=== PATIENT | female | born 2000 | race Caucasian/White ===

== ENCOUNTER → 2021-07-11 11:30 | Outpatient (BNVA) | payer OTHER, SELFPAY | PROVIDERS: Visit Provider Advanced Practice Midwife ==

== ENCOUNTER 2021-07-15 12:53 | Outpatient (REF) | payer OTHER, SELFPAY ==
--- NOTE | ~2021-07-15 | US_ITS ---
EXAMINATION: OBSTETRICAL ULTRASOUND, FIRST TRIMESTER HISTORY: A 20-year-old at 15.4 weeks of gestation Uncertain dates LMP: Unknown COMPARISON: None TECHNIQUE: Real time transabdominal imaging with color and M-mode Doppler. FINDINGS: A single, live IUP CRL of 34.2 mm c/w 10.3wks is noted. Heart Rate: 161 beats per minute. Too early for NT evaluation. However the nuchal area appeared grossly normal. Both maternal ovaries are seen and appear normal. GESTATIONAL AGE: 1. GA from LMP: N/A 2. GA from AUA: 10.3 wks ESTIMATED DATE OF DELIVERY: 1. BERTA from LMP: N/A 2. BERTA from AUA: 02/07/2022 US/US OB <= 14 weeks fetus IMPRESSION: 1. A single live IUP 2. Size less than dates, CRL is distended 10.3 weeks. 3. Adjust her BERTA to 02/07/2022 Too early for NT. A 2 week follow-up has been scheduled. Thank you very much for this referral. This note was generated with a voice recognition program. Please excuse any errors which may have been overlooked during my review of this note. Sometimes these errors may affect the content or meaning of a given sentence.
== END 2021-07-15 12:54 | disposition home or self-care (01) ==
LOC: HO.US 12:53
PROVIDERS: Visit Provider Obstetrics & Gynecology
DX: Z34.92 Encounter for supervision of normal pregnancy, unspecified, second trimester (principal)
CPT/HCPCS: 76801

== ENCOUNTER → 2021-07-25 13:54 | Outpatient (BNVA) | payer OTHER, SELFPAY | PROVIDERS: Visit Provider Obstetrics & Gynecology | DX: O99.211 Obesity complicating pregnancy, first trimester (principal); Z3A.11 11 weeks gestation of pregnancy | CPT/HCPCS: 99212 ==

== ENCOUNTER 2021-07-29 14:15 | Outpatient (REF) | payer OTHER, SELFPAY ==
--- NOTE | ~2021-07-29 | US_ITS ---
EXAMINATION: OBSTETRICAL ULTRASOUND, FIRST TRIMESTER HISTORY: 20-year-old at 12.3 weeks of gestation NT screening COMPARISON: 07/15/2021 TECHNIQUE: Real time transabdominal imaging with color and M-mode Doppler. FINDINGS: A single, live IUP CRL of 57.8 mm c/w 12.3wks is noted. Heart Rate: 167 beats per minute. Normal yolk sac seen. NT was 1.85.mm. NB Present The embryo appears sonographically wnl for this GA. Both maternal ovaries are seen and appear normal. GESTATIONAL AGE: 1. Established GA: 12.3 wks 2. GA from AUA: 12.3 wks ESTIMATED DATE OF DELIVERY: 1. Established BERTA: 02/07/2022 2. BERTA from AUA: 02/07/2022 US/US OB 1T nuc measure IMPRESSION: 1. A single live IUP 2. Size equals dates 3. NT of 1.85 mm MFM Consultation: I reviewed the ultrasound findings along with significance of NT measurement. The NT of less than 3mm is generally reassuring. However, the sensitivity for T21 detection is only 60%. I reviewed the availability of serum aneuploidy screening which includes cell-free DNA and placental protein based tests. I discussed the sensitivity, false-positive rate, and other limitations associated with each test. I also reviewed the availability of invasive diagnostic tests that are associated small but definite risk of miscarriage. We also reviewed the differences between screening tests and diagnostic tests. After our discussion, she opted for the First trimester screening that is based on cell-free DNA or non-invasive testing (NIPT). The result will be faxed to your office in approximately 7 days. A follow up at 18 weeks for survey has been scheduled. Thank you very much for this referral. Total time 30 minutes. The time spent was devoted to counseling the patient about the disease and diagnosis, coordinating care including reviewing her records, pertinent lab data and studies, as well as discussing diagnostic evaluation and workup, plan therapeutic interventions and future disposition of care. This includes any additional research needed to obtain further information in formulating the plan of care of this patient. This note was generated with a voice recognition program. Please excuse any errors which may have been overlooked during my review of this note. Sometimes these errors may affect the content or meaning of a given sentence.
== END 2021-07-29 14:16 | disposition home or self-care (01) ==
LOC: HO.US 14:15
PROVIDERS: Visit Provider Obstetrics & Gynecology
DX: Z34.90 Encounter for supervision of normal pregnancy, unspecified, unspecified trimester (principal)
CPT/HCPCS: 76813

== ENCOUNTER 2021-08-23 14:07 | Outpatient (REF) | payer OTHER, SELFPAY ==
[2021-08-23 17:37] LABS: Hematocrit 39.4 % (37.0-47.0); Hemoglobin 12.9 g/dl (12.0-16.0); Mean Corpuscular HGB Conc 32.7 g/dl (31.0-35.0); Mean Corpuscular Hemoglobin 28.1 pg (27.0-33.0); Mean Corpuscular Volume 85.8 fL (80.0-98.0); Mean Platelet Volume 11.4 fL (9.4-12.3); Platelet Count 222 X10*3/uL (160-400); Red Blood Count 4.59 X10*6/uL (4.20-5.50); Red Cell Distribution Width 13.2 % (11.0-16.0)
[2021-08-23 17:58] LABS: Glucose 1 Hour PP 50gm Dose 113 mg/dL (60-140)
[2021-08-23 19:12] LABS: Amphetamine Screen Urine Not Detected (Not Detect); Barbiturates, Urine Not Detected (Not Detect); Benzodiazepines Screen Urine Not Detected (Not Detect); Cannabinoid Screen Urine Not Detected (Not Detect); Cocaine Screen Urine Not Detected (Not Detect); Fentanyl, urine Not Detected (Not Detect); Opiate Screen Urine Not Detected (Not Detect); Phencyclidine Screen Urine Not Detected (Not Detect)
[2021-08-24 08:33] LABS: Syphilis Screen Nonreactive (Nonreactive)
[2021-08-24 08:53] LABS: HIV AB/AG Nonreactive (Nonreactive); HIV Num 1 0.08 S/CO (0.00-0.99)
[2021-08-24 09:11] LABS: HBsAGNum1 0.16 S/CO (0.00-0.99); Hepatitis B Surface Antigen Negative (Negative); ~HepC Num1 0.58 S/CO (0.00-0.79); ~Hepatitis C Antibody Nonreactive (Nonreactive)
[2021-08-24 09:42] LABS: CT PCR NOT DETECTED (Not Detect.); NG PCR NOT DETECTED (Not Detect.)
[2021-08-24 18:57] LABS: Rubella IgG Antibody 0.98 Index
== END 2021-08-23 14:08 | disposition home or self-care (01) ==
LOC: HO.LAB 14:07
PROVIDERS: Absent Provider Obstetrics & Gynecology; Visit Provider Advanced Practice Midwife
DX: Z34.92 Encounter for supervision of normal pregnancy, unspecified, second trimester (principal); Z3A.16 16 weeks gestation of pregnancy; Z20.2 Contact with and (suspected) exposure to infections with a predominantly sexual mode of transmission
CPT/HCPCS: 80307; 81003; 85027; 86762; 86780; 86787; 86803; 86850; 86886; 86900; 86901; 87086; 87340; 87389; 87491; 87591; 88142; 99212

== ENCOUNTER 2021-09-09 12:52 | Outpatient (REF) | payer OTHER, SELFPAY ==
--- NOTE | ~2021-09-09 | US_ITS ---
EXAMINATION: US OBSTETRICAL CLINICAL INFORMATION: 20-year-old at 18.3 weeks of gestation High BMI Screening for anomaly COMPARISON: 07/29/2021 TECHNIQUE: Real-time transabdominal ultrasound was performed using C1-5 megahertz transducer. FINDINGS: A single, active, fetus is seen in vertex presentation. The placenta is posterior without previa, and the amniotic fluid volume is wnl. MEASUREMENTS: 1. Biparietal Diameter: 4.1 cm; 18.4 wks 2. Occipital Frontal Diameter: 5.4 cm 3. Head Circumference: 15.4 cm; 18.3 wks 4. Abdominal Circumference: 12.5 cm; 18.1 wks 5. Femur Length: 2.7 cm; 18.3 wks 6. Humerus Length: 2.6 cm; 18.2 wks 7. Tibia Length: 2.3 cm; 18.1 wks 8. Ulna Length: 2.5 cm; 19.0 wks 9. Lateral ventricle: 0.7 cm 10. Cerebellum: 1.84 cm; 19.1 wks 11. Cisterna Magna: 0.35 cm 12. Nuchal Fold: 3.53 mm 13. Heart Rate: 132 beats per minute Rt ovary: normal Lt ovary: normal Cervical length 4.3 cm on T/A. GESTATIONAL AGE: 1. Established GA: 18.3 wks 2. GA from [facility]: 18.3 wks ESTIMATED DATE OF DELIVERY: 1. Established BERTA: 02/07/2022 2. BERTA from [facility]: 02/07/2022 ANATOMY: The views of the aortic and ductal arches were suboptimal. The visualized anatomy includes but not limited to: 1. Cranium: Normal 2. Intracranial anatomy: cavum septum pellucidi, lateral ventricles, choroid plexus, cerebellum, posterior fossa, third and fourth ventricles. 3. face: orbits, lip/palate, profile, nasal bone 4. Heart: Limited views of the aortic and ductal arches due to maternal body habitus and position. four-chamber view of the heart, ventricular septum, foramen ovale, pulmonary vein, left and right outflow tracts, three-vessel view, 3 vessel trachea view, situs.. 5. Diaphragm: Normal 6. Abdominal wall: Normal 7. Cord Insertion: Normal 8. Spine: Cervical, thoracic, lumbar, sacral. 9. Stomach: Normal size and shape 10. Right Kidney: Normal 11. Left Kidney: Normal 12. 3 vessel cord: Normal 13. Upper extremity: Open hands, fifth digit. 14. Lower extremity: Tibia, fibula, bilateral feet. 15. Bladder: Normal 16. Genitalia: Male, patient aware US/US OB /maternal detail IMPRESSION: 1. Single, living, intrauterine with appropriate biometry. 2. Normal survey DISCUSSION: I reviewed today's ultrasound findings. We discussed the limitations of ultrasound in diagnosing aneuploidy and other congenital abnormalities. I reviewed the differences between screening test and diagnostic test. Amniocentesis was discussed and declined. She had normal NT evaluation but declined N IPT. She was informed that the baseline incidence of congenital abnormalities is approximately 3-5%. Not all these conditions are diagnosable in utero. RECOMMENDATIONS: 1. Follow-up in 3 weeks (scheduled). Thank you for allowing me to participate in her care. Total time 20 minutes. The time spent was devoted to counseling the patient about the disease and diagnosis, coordinating care including reviewing her records, pertinent lab data and studies, as well as discussing diagnostic evaluation and workup, plan therapeutic interventions and future disposition of care. This includes any additional research needed to obtain further information in formulating the plan of care of this patient. This note was generated with a voice recognition program. Please excuse any errors which may have been overlooked during my review of this note. Sometimes these errors may affect the content or meaning of a given sentence.
== END 2021-09-09 12:53 | disposition home or self-care (01) ==
LOC: HO.US 12:52
PROVIDERS: Visit Provider Advanced Practice Midwife
DX: O46.92 Antepartum hemorrhage, unspecified, second trimester (principal); O35.9XX0 Maternal care for (suspected) fetal abnormality and damage, unspecified, not applicable or unspecified; Z3A.18 18 weeks gestation of pregnancy
CPT/HCPCS: 76811

== ENCOUNTER → 2021-09-19 10:21 | Outpatient (BNVA) | payer OTHER, SELFPAY | PROVIDERS: Visit Provider Advanced Practice Midwife | DX: Z34.82 Encounter for supervision of other normal pregnancy, second trimester (principal); Z3A.19 19 weeks gestation of pregnancy | CPT/HCPCS: 99212 ==

== ENCOUNTER → 2021-10-17 12:55 | Outpatient (BNVA) | payer OTHER, SELFPAY | PROVIDERS: Visit Provider Advanced Practice Midwife | DX: Z34.82 Encounter for supervision of other normal pregnancy, second trimester (principal); Z3A.23 23 weeks gestation of pregnancy | CPT/HCPCS: 99212 ==

== ENCOUNTER 2021-10-21 10:53 | Outpatient (REF) | payer OTHER, SELFPAY ==
--- NOTE | ~2021-10-21 | US_ITS ---
EXAMINATION: OBSTETRICAL ULTRASOUND, Follow up HISTORY: 20-year-old at 24.3 weeks of gestation Follow-up anatomy COMPARISON: 09/09/2021 TECHNIQUE: Real time transabdominal imaging with color and M-mode Doppler. PRESENTATION: Vertex PLACENTA LOCATION: Posterior without previa AMNIOTIC FLUID: Normal MEASUREMENTS: 1. Biparietal Diameter: 5.9 cm; 24.2 wks 2. Head Circumference: 22.8 cm; 24.6 wks 3. Abdominal Circumference: 19.8 cm; 24.4 wks 4. Femur Length: 4.2 cm; 23.6 wks 5. Heart Rate: 155 beats per minute WEIGHT: Estimated weight is 677 grams (1 lbs 8 oz) -- 33 %. Normal views of lateral cerebral ventricle, profile, nose/lips, 4ch view, LVOT, RVOT, three-vessel view, 3 vessel trachea view, IVC and SVC, aortic and ductal arches, right and left hands, right and left lower extremities. GESTATIONAL AGE: 1. Established GA: 24.3 wks 2. GA from AUA: 24.3 wks ESTIMATED DATE OF DELIVERY: 1. Established BERTA: 02/07/2022 2. BERTA from AUA: 02/07/2022 US/US OB follow up IMPRESSION: 1. A single fetus with appropriate interval growth. 2. Previously limited views of the anatomy were seen as listed above. No abnormalities were noted in visualized anatomy. 3. This completes the survey. I reviewed the limitations of ultrasound in diagnosing aneuploidy and other congenital abnormalities. Amniocentesis was again reviewed and she declined. She was informed that the baseline instance of congenital abnormalities and defects in the general population is approximately 3-5%. Not all these conditions are diagnosable in utero. RECOMMENDATIONS: 1. f/u PRN Thank you very much for this referral. This note was generated with a voice recognition program. Please excuse any errors which may have been overlooked during my review of this note. Sometimes these errors may affect the content or meaning of a given sentence.
== END 2021-10-21 10:54 | disposition home or self-care (01) ==
LOC: HO.US 10:53
PROVIDERS: Absent Provider Obstetrics & Gynecology; Visit Provider Advanced Practice Midwife
DX: O35.9XX0 Maternal care for (suspected) fetal abnormality and damage, unspecified, not applicable or unspecified (principal); O23.40 Unspecified infection of urinary tract in pregnancy, unspecified trimester; N39.0 Urinary tract infection, site not specified
CPT/HCPCS: 76816; 87086; 87147

== ENCOUNTER 2021-11-10 15:37 | Outpatient (REF) | payer OTHER, SELFPAY ==
--- NOTE | 2021-11-10 16:02 | ECG_ITS ---
Test Reason : palpitations Blood Pressure : / mmHG Vent. Rate : 080 BPM Atrial Rate : 080 BPM P-R Int : 132 ms QRS Dur : 086 ms QT Int : 358 ms P-R-T Axes : 018 001 020 degrees QTc Int : 412 ms Normal sinus rhythm Normal ECG When compared with ECG of 04-NOV-2018 22:06, No significant change was found Referred By: Samantha Jackson Electronically Signed By:LEONEL LLANES
[2021-11-10 16:55] LABS: TSH reflex Free T4 (Prenatal) 3.49 uIU/mL (0.32-4.0)
[2021-11-10 17:55] LABS: Free T4 (Free Thyroxine) 0.62 ng/dL (0.71-1.85)
== END 2021-11-10 15:38 | disposition home or self-care (01) ==
LOC: HO.LAB 15:37
PROVIDERS: Visit Provider Obstetrics & Gynecology
DX: O26.899 Other specified pregnancy related conditions, unspecified trimester (principal); R00.2 Palpitations
CPT/HCPCS: 36415; 84439; 93005

== ENCOUNTER → 2021-11-11 10:18 | Outpatient (REF) | payer OTHER, SELFPAY ==
--- NOTE | 2021-11-11 10:25 | CA_ITS ---
Transthoracic Echocardiogram Patient (Last, First, Middle): Hari Abad Rose Gender: Female Date of : 2000 Age: 20 Procedure Date: 11/11/2021 Procedure Type: Transthoracic Echocardiogram Location: OP Height: 162.56 cm Weight: 110.68 kg BSA: 2.13 m2 Heart Rate: bpm BP: 114 / 70 mmHg [employer] Project Planner: EMILIA Referring MD: Raymundo Darling MD Symptoms: R00.2 - Palpitations Study Quality: Fair ECG Rhythm: Sinus Conclusions: - The left ventricular systolic function is normal. The calculated ejection fraction is 58% by biplane method. - No obvious valvular pathology seen on this study. Findings Left Ventricle Normal left ventricular cavity size. There is normal left ventricular wall thickness. The left ventricular systolic function is normal. The calculated ejection fraction is 58% by biplane method. There is no evidence of regional wall motion abnormalities. Diastolic function is normal for age. Right Ventricle Normal right ventricular cavity size and systolic function. Atria Both atria are normal in size. Aortic Valve There is a normal trileaflet aortic valve. There is no aortic valve stenosis. There is no aortic valve regurgitation. Mitral Valve The mitral valve appears normal. There is trace mitral valve regurgitation. There is no mitral valve stenosis. Pulmonic Valve The pulmonic valve is likely normal. Tricuspid Valve Normal tricuspid valve structure. There is trace tricuspid valve regurgitation. The pulmonary artery systolic pressure is normal. Great Vessels The aortic annulus, sinuses of valsalva, asc aorta, and aortic arch are normal in size. Venous The inferior vena cava is normal in size and collapses greater than 50% with inspiration. Pericardium/Pleural There is no evidence of pericardial effusion. Prior Study Comparison No significant change compared to prior study dated: 01/11/2017. Recommendations, Care & Conclusions No obvious valvular pathology seen on this study. Measurements 2D Linear Measurements IVSd: 0.98 0.6-0.9/0.6-1.0 cm LVIDd: 4.49 3.9-5.3/4.2-5.9 cm LVIDd Index: 2.11 2.4-3.2/2.2-3.1 cm/m2 LVIDs: 3.13 2.0-3.6 cm LVPWd: 0.84 0.7-1.1 cm Ao Root: 3.00 2.1-3.5 cm LA Diam: 3.70 2.7-3.8/3.0-4.0 cm LAIDs Index: 1.74 1.5-2.3 cm/m2 LV Mass: 166.90 67-162/88-224 g LV Mass Index: 78.36 43-95/49-115 g/m2 LVOT Diam: 2.10 3.0+(-)1.3 cm 2D Systolic Function EF 4C: 60.20 >55% EF 2C: 58.00 >55% EF BiP: 57.90 >55% Mitral Valve MV Pk E: 0.85 MV PK A: 0.59 MV Decel Time: 194.00 E/A: 1.40 E'Lateral: 12.10 E'Medial: 9.90 E/E' Med: 8.60 E/E' Lat: 7.00 PHT: 57.00 MVA PHT: 3.86 Decel [place]: 4.39 Aortic Valve AoV Pk J Carlos: 1.52 AoV Mn J Carlos: 1.08 AoV VTI: 0.28 AoV Pk Grad: 9.00 Aov Mn Grad: 5.00 BRIAN Cont.VTI: 2.79 LVOT LVOT Pk J Carlos: 1.19 LVOT Mn J Carlos: 0.82 LVOT VTI: 0.23 LVOT Pk Grad: 6.00 LVOT Mn Grad: 3.00 LVOT Diam: 2.10 LVOT Area: 3.46 Diastolic Function MV Pk E: 0.85 MV Pk A: 0.59 E/A: 1.40 E'Medial: 9.90 E/E' Med: 8.60 E' Laterial: 12.10 E/E' Lat: 7.00 Right Ventricle TAPSE (mm): 27.20 TVS' J Carlos: 13.80 Tricuspid Valve TR Pk J Carlos: 1.62 TR Pk Grad: 10.00 Great Vessels Aorta Ao Root-2D: 3.00 2.0-3.7 cm Ao Asc: 3.10 2.1-3.4 cm Ao Arch: 3.00 Updated in Other Vendor System with Status of Final Eric Diego MD electronically signed on 11/13/2021 1:27:48 PM with status of Final
== END ==
LOC: HO.CARD 10:18
PROVIDERS: Visit Provider Obstetrics & Gynecology
DX: O26.892 Other specified pregnancy related conditions, second trimester (principal); R00.2 Palpitations; Z3A.27 27 weeks gestation of pregnancy
CPT/HCPCS: 93306; 99212

== ENCOUNTER 2021-11-17 11:47 | Outpatient (REF) | payer OTHER, SELFPAY ==
[2021-11-17 13:58] LABS: Thyroid Stimulating Hormone 2.98 uIU/mL (0.32-4.0)
[2021-11-19 07:06] LABS: Thyroglobulin Antibodies 6 IU/mL (< or = 1); Thyroid Peroxidase Antibodies 169 IU/mL (<9)
== END 2021-11-17 11:48 | disposition home or self-care (01) ==
LOC: HO.LAB 11:47
PROVIDERS: Visit Provider Internal Medicine
DX: O99.280 Endocrine, nutritional and metabolic diseases complicating pregnancy, unspecified trimester (principal); E03.9 Hypothyroidism, unspecified
CPT/HCPCS: 36415; 84436; 84443; 86376; 86800

== ENCOUNTER 2021-11-23 11:46 | Outpatient (REF) | payer OTHER, SELFPAY ==
[2021-11-23 13:29] LABS: Glucose 1 Hour PP 50gm Dose 173 mg/dL (60-140)
== END 2021-11-23 11:47 | disposition home or self-care (01) ==
LOC: HO.LAB 11:46
PROVIDERS: Visit Provider Advanced Practice Midwife
DX: O36.8330 Maternal care for abnormalities of the fetal heart rate or rhythm, third trimester, not applicable or unspecified (principal); O99.283 Endocrine, nutritional and metabolic diseases complicating pregnancy, third trimester; O99.213 Obesity complicating pregnancy, third trimester; E66.9 Obesity, unspecified; Z3A.29 29 weeks gestation of pregnancy; Z98.891 History of uterine scar from previous surgery
CPT/HCPCS: 36415; 59025; 81003; 99212

== ENCOUNTER 2021-11-26 07:08 | Outpatient (REF) | payer OTHER, SELFPAY ==
[2021-11-26 08:26] LABS: Glucose Fasting 101 mg/dL (60-99)
[2021-11-26 08:51] LABS: Glucose 1 Hour 210 mg/dL
[2021-11-26 10:45] LABS: Glucose 2 Hour 117 mg/dL
[2021-11-26 11:34] LABS: Glucose 3 Hour 144 mg/dL
== END 2021-11-26 07:09 | disposition home or self-care (01) ==
LOC: HO.LAB 07:08
PROVIDERS: Visit Provider Advanced Practice Midwife
DX: O99.810 Abnormal glucose complicating pregnancy (principal)
CPT/HCPCS: 36415; 82951

== ENCOUNTER → 2021-12-01 15:39 | Outpatient (BNVA) | payer OTHER, SELFPAY | PROVIDERS: Visit Provider Advanced Practice Midwife ==

== ENCOUNTER → 2021-12-09 10:45 | Outpatient (BNVA) | payer OTHER, SELFPAY | PROVIDERS: Visit Provider Advanced Practice Midwife | DX: O24.410 Gestational diabetes mellitus in pregnancy, diet controlled (principal); Z3A.31 31 weeks gestation of pregnancy; Z98.891 History of uterine scar from previous surgery | CPT/HCPCS: 81003; 99212 ==

== ENCOUNTER 2021-12-30 10:37 | Outpatient (REF) | payer OTHER, SELFPAY ==
[2021-12-30 12:17] LABS: Thyroid Stimulating Hormone 2.06 uIU/mL (0.32-4.0)
[2021-12-30 12:46] LABS: T4 Thyroxine 8.1 ug/dL (4.5-12.0)
== END 2021-12-30 10:38 | disposition home or self-care (01) ==
LOC: HO.LAB 10:37
PROVIDERS: Visit Provider Internal Medicine
DX: O99.280 Endocrine, nutritional and metabolic diseases complicating pregnancy, unspecified trimester (principal); E03.9 Hypothyroidism, unspecified
CPT/HCPCS: 36415; 84436; 84443

== ENCOUNTER → 2022-01-02 07:53 | Outpatient (BNVA) | payer OTHER, SELFPAY | PROVIDERS: Visit Provider Internal Medicine | DX: O99.280 Endocrine, nutritional and metabolic diseases complicating pregnancy, unspecified trimester (principal); E03.9 Hypothyroidism, unspecified; E04.9 Nontoxic goiter, unspecified | CPT/HCPCS: 99212 ==

== ENCOUNTER 2022-01-13 11:18 | Outpatient (REF) | payer OTHER, SELFPAY ==
--- NOTE | ~2022-01-13 | US_ITS ---
EXAMINATION: OBSTETRICAL ULTRASOUND, Follow up HISTORY: 21-year-old at the 36.3 weeks of gestation High BMI GDM A1 COMPARISON: 10/21/2021 TECHNIQUE: Real time transabdominal imaging with color and M-mode Doppler. PRESENTATION: Vertex PLACENTA LOCATION: Posterior without previa AMNIOTIC FLUID: MICHAEL 16.5 cm MEASUREMENTS: 1. Biparietal Diameter: 9.1 cm; 36.6 wks 2. Head Circumference: 32.2 cm; 36.3 wks 3. Abdominal Circumference: 33.8 cm; 37.6 wks 4. Femur Length: 6.8 cm; 35.1 wks 5. Heart Rate: 122 beats per minute WEIGHT: EFW: 3048 grams (6 lbs 12 oz) -- 65 %. BIOPHYSICAL PROFILE: Motion: 2 Tone: 2 Breathin Amniotic Fluid: 2 Total score: 8/8 GESTATIONAL AGE: 1. Established GA: 36.3 wks 2. GA from AUA: 36.4 wks ESTIMATED DATE OF DELIVERY: 1. Established BERTA: 02/07/2022 2. BERTA from AUA: 02/06/2022 US/US OB follow up IMPRESSION: 1. The single active fetus is in vertex presentation 2. Size equals dates 3. Reassuring biophysical profile Patient reports normal glycemic control on diet. Informs me that her fasting values range between 70-90. Her postprandial values are mostly under 120. I reviewed the increased risk of macrosomia, polyhydramnios, delivery as well as hypoglycemia with suboptimally controlled maternal serum glucose. Thank you very much for this referral. Total time 30 minutes. The time spent was devoted to counseling the patient about the disease and diagnosis, coordinating care including reviewing her records, pertinent lab data and studies, as well as discussing diagnostic evaluation and workup, plan therapeutic interventions and future disposition of care. This includes any additional research needed to obtain further information in formulating the plan of care of this patient. This note was generated with a voice recognition program. Please excuse any errors which may have been overlooked during my review of this note. Sometimes these errors may affect the content or meaning of a given sentence.
--- NOTE | ~2022-01-13 | US_ITS ---
EXAMINATION: US THYROID CLINICAL INFORMATION: Nontoxic goiter, unspecified. COMPARISON: None TECHNIQUE: Linear transducer grayscale and color Doppler examination with attention to the region of the thyroid. FINDINGS: SIZE: Measurements of the thyroid lobes and nodules are given in sagittal, anteroposterior and transverse dimensions respectively. Right Thyroid Lobe: 4.8 x 1.9 x 1.9 cm, volume 8.6 mL. Parenchyma: The gland echotexture is heterogeneous. Thyroid vascularity is normal. Left Thyroid Lobe: 4.9 x 1.4 x 2.0 cm, volume 7.0 mL. Parenchyma: The gland echotexture is heterogeneous. Thyroid vascularity is normal. Isthmus: 0.4 cm in maximum AP dimension. Estimated total number of nodules greater than or equal to 1 cm: 0. [employer] Engineer nodules are described as follows: 1. Location: Right inferior. Size: 0.6 x 0.3 x 0.6 cm, volume 0.06 mL. Nodule characteristics: Composition: Solid (2). Echogenicity: Hypoechoic (2). Shape: Not taller than wide (0). Margins: Smooth (0). Echogenic Foci: None (0). ACR TI-RADS total points: 4 ACR TI-RADS category: 4 NODES: No lymphadenopathy is seen in the tissue surrounding the thyroid gland. US/US thyroid IMPRESSION: Heterogeneous normal-size thyroid gland. Solitary small right thyroid nodule. ACR TI-RADS RECOMMENDATION REFERENCE: Ultrasound-guided fine-needle aspiration, followup ultrasound, no further follow up. * TR1 (0 point) and TR 2 (2 points): No FNA or follow up * TR3 (3 points): FNA if more than or equal to 2.5 cm in maximum dimension, followup ultrasound in 1, 3 and 5 years if 1.5 to 2.4 cm in maximum dimension. * TR4 (4-6 points): FNA if more than or equal to 1.5 cm in maximum dimension, followup ultrasound in 1, 2, 3 and 5 years if 1 to 1.4 cm in maximum dimension. * TR5 (more than or equal to 7 points): FNA if more than or equal to 1 cm in maximum dimension, followup ultrasound every year for 5 years if 0.5 to 0.9 cm in maximum dimension. * TR3, TR4 or TR5 nodules that are below the size threshold for follow up receive no follow up.
== END 2022-01-13 11:19 | disposition home or self-care (01) ==
LOC: HO.US 11:18
PROVIDERS: Visit Provider Obstetrics & Gynecology Obstetrics
DX: O26.893 Other specified pregnancy related conditions, third trimester (principal); E04.9 Nontoxic goiter, unspecified; Z3A.36 36 weeks gestation of pregnancy
CPT/HCPCS: 76536; 76816

== ENCOUNTER 2022-01-20 11:31 | Outpatient (REF) | payer OTHER, SELFPAY ==
--- NOTE | ~2022-01-20 | US_ITS ---
EXAMINATION: US OBSTETRICAL (BIOPHYSICAL PROFILE) CLINICAL INFORMATION: 21-year-old at the 37.3 weeks of gestation High BMI GDM A1 COMPARISON: 01/13/2022 TECHNIQUE: Biophysical profile is performed over 30 minutes with assessment of breathing, gross body movement, tone, and qualitative amniotic fluid volume. FINDINGS: POSITION: Cephalic PLACENTA: Posterior without previa AMNIOTIC FLUID INDEX: 13.6 cm CARDIAC ACTIVITY: 149 beats per minute BIOPHYSICAL PROFILE: Motion: 2 Tone: 2 Breathin Amniotic Fluid: 2 The total biophysical score is 8/8 US/US OB biophysical profile IMPRESSION: 1. Single intrauterine gestation in vertex position. 2. Reassuring BPP and MICHAEL Thank you for allowing me to participate in her care. This note was generated with a voice recognition program. Please excuse any errors which may have been overlooked during my review of this note. Sometimes these errors may affect the content or meaning of a given sentence.
== END 2022-01-20 11:32 | disposition home or self-care (01) ==
LOC: HO.US 11:31
PROVIDERS: Visit Provider Obstetrics & Gynecology Obstetrics
DX: O99.213 Obesity complicating pregnancy, third trimester (principal); E66.9 Obesity, unspecified; Z3A.37 37 weeks gestation of pregnancy
CPT/HCPCS: 76819

== ENCOUNTER 2022-01-27 11:25 | Outpatient (REF) | payer OTHER, SELFPAY ==
--- NOTE | ~2022-01-27 | US_ITS ---
EXAMINATION: OBSTETRICAL ULTRASOUND, Follow up HISTORY: 21-year-old at 38.3 weeks of gestation GDM A1 Size date discrepancy COMPARISON: 01/20/2022 TECHNIQUE: Real time transabdominal imaging with color and M-mode Doppler. PRESENTATION: Vertex PLACENTA LOCATION: Posterior without previa AMNIOTIC FLUID: MICHAEL 16.0 cm MEASUREMENTS: 1. Biparietal Diameter: 9.3 cm; 37.5 wks 2. Head Circumference: 34.8 cm; 40.4 wks 3. Abdominal Circumference: 37.2 cm; 41.2 wks 4. Femur Length: 7.4 cm; 37.6 wks 5. Heart Rate: 142 beats per minute WEIGHT: EFW: 3936 grams (8 lbs 11 oz) -- 93 %. BIOPHYSICAL PROFILE: Motion: 2 Tone: 2 Breathin Amniotic Fluid: 2 Total score: 8/8 GESTATIONAL AGE: 1. Established GA: 38.3 wks 2. GA from AUA: 39.3 wks ESTIMATED DATE OF DELIVERY: 1. Established BERTA: 02/07/2022 2. BERTA from AUA: 01/31/2022 US/US OB follow up IMPRESSION: 1. A single active fetus is in vertex presentation 2. Size greater than dates, EFW corresponds to 93rd percentile 3. Reassuring biophysical profile and amniotic fluid index. She reports that normal glycemic values on diet alone. We reviewed the limitations of ultrasound and estimating weights. In addition unless the EFW is 4500 g or above, an elective section to prevent shoulder dystocia is not the recommended. Agree with the current plan of delivery between 39-40 weeks. Thank you very much for this referral. Total time 20 minutes. The time spent was devoted to counseling the patient about the disease and diagnosis, coordinating care including reviewing her records, pertinent lab data and studies, as well as discussing diagnostic evaluation and workup, plan therapeutic interventions and future disposition of care. This includes any additional research needed to obtain further information in formulating the plan of care of this patient. This note was generated with a voice recognition program. Please excuse any errors which may have been overlooked during my review of this note. Sometimes these errors may affect the content or meaning of a given sentence.
== END 2022-01-27 11:26 | disposition home or self-care (01) ==
LOC: HO.US 11:25
PROVIDERS: Visit Provider Obstetrics & Gynecology Obstetrics
DX: O99.213 Obesity complicating pregnancy, third trimester (principal); Z3A.38 38 weeks gestation of pregnancy
CPT/HCPCS: 76816

== ENCOUNTER 2022-02-03 11:29 | Outpatient (REF) | payer OTHER, SELFPAY ==
--- NOTE | ~2022-02-03 | US_ITS ---
EXAMINATION: US OBSTETRICAL (BIOPHYSICAL PROFILE) CLINICAL INFORMATION: 21-year-old at that 39.3 weeks of gestation GDM A1 COMPARISON: 01/27/2022 TECHNIQUE: Biophysical profile is performed over 30 minutes with assessment of breathing, gross body movement, tone, and qualitative amniotic fluid volume. FINDINGS: POSITION: Cephalic PLACENTA: Posterior without previa AMNIOTIC FLUID INDEX: 18.0 cm CARDIAC ACTIVITY: 147 beats per minute BIOPHYSICAL PROFILE: Motion: 2 Tone: 2 Breathin Amniotic Fluid: 2 The total biophysical score is 8/8 US/US OB biophysical profile IMPRESSION: 1. Single intrauterine gestation in vertex position. 2. Reassuring BPP and MICHAEL I reviewed today's findings and gave her reassurance. According to the patient, her glycemic control is excellent on diet alone. She had a prior for failure to progress. The weight of that daughter was approximately 9 pounds. She desires TO LADC. Given the EFW and her history, the probability of a successful vaginal delivery is approximately 60%. Based on this I recommended that she can wait until her BERTA for the spontaneous labor. However, if she needs to undergo IOL, a scheduled repeat, may be a better option. I reviewed the risks and benefits of induction of labor versus scheduled . In addition I informed her that the incidence of surgical complication is higher after sections performed after laboring than scheduled, elective sections. Thank you for allowing me to participate in her care. Total time 30 minutes. The time spent was devoted to counseling the patient about the disease and diagnosis, coordinating care including reviewing her records, pertinent lab data and studies, as well as discussing diagnostic evaluation and workup, plan therapeutic interventions and future disposition of care. This includes any additional research needed to obtain further information in formulating the plan of care of this patient. This note was generated with a voice recognition program. Please excuse any errors which may have been overlooked during my review of this note. Sometimes these errors may affect the content or meaning of a given sentence.
== END 2022-02-03 11:30 | disposition home or self-care (01) ==
LOC: HO.US 11:29
PROVIDERS: Visit Provider Obstetrics & Gynecology Obstetrics
DX: O99.213 Obesity complicating pregnancy, third trimester (principal); E66.9 Obesity, unspecified; Z3A.39 39 weeks gestation of pregnancy
CPT/HCPCS: 76819

== ENCOUNTER 2022-02-10 11:27 | Outpatient (REF) | payer OTHER, SELFPAY ==
--- NOTE | ~2022-02-10 | US_ITS ---
EXAMINATION: OBSTETRICAL ULTRASOUND, Follow up HISTORY: 21-year-old at the 40.3 weeks of gestation GDM A1 High BMI COMPARISON: 02/03/2022 TECHNIQUE: Real time transabdominal imaging with color and M-mode Doppler. PRESENTATION: Vertex PLACENTA LOCATION: Posterior without previa AMNIOTIC FLUID: MICHAEL 19.9 cm MEASUREMENTS: 1. Biparietal Diameter: 9.6 cm; 39.2 wks 2. Head Circumference: 35.9 cm; N/A wks 3. Abdominal Circumference: 38.3 cm; N/A wks 4. Femur Length: 7.5 cm; 38.2 wks 5. Heart Rate: 155 beats per minute WEIGHT: EFW: 4298 grams (9 lbs 8 oz) -- 95 %. BIOPHYSICAL PROFILE: Motion: 2 Tone: 2 Breathin Amniotic Fluid: 2 Total score: 8/8 GESTATIONAL AGE: 1. Established GA: 40.3 wks 2. GA from AUA: 38.6 wks ESTIMATED DATE OF DELIVERY: 1. Established BERTA: 02/07/2022 2. BERTA from AUA: 02/18/2022 US/US OB follow up IMPRESSION: 1. A single active fetus is in vertex presentation 2. Size greater than dates, EFW corresponds to 95th percentile 3. Reassuring BPP with normal amniotic fluid index I reviewed the findings and its the limitations. The EFW is below 4500 g which is the upper limit for offering an elective section to prevent shoulder dystocia for patients with diabetes. She has well controlled GDM A1. In her last visit, we discussed that the probability of having a successful TOLAC, given her history of section in her first due to failure to progress with the 9 pounds the fetus, is approximately 60%. Thank you very much for this referral. This note was generated with a voice recognition program. Please excuse any errors which may have been overlooked during my review of this note. Sometimes these errors may affect the content or meaning of a given sentence.
== END 2022-02-10 11:28 | disposition home or self-care (01) ==
LOC: HO.US 11:27
PROVIDERS: Visit Provider Obstetrics & Gynecology Obstetrics
DX: O24.419 Gestational diabetes mellitus in pregnancy, unspecified control (principal); O99.213 Obesity complicating pregnancy, third trimester; E66.9 Obesity, unspecified; Z3A.40 40 weeks gestation of pregnancy
CPT/HCPCS: 76816

== ENCOUNTER 2022-04-01 08:28 | Outpatient (REF) | payer OTHER, SELFPAY ==
[2022-04-01 09:41] LABS: Thyroid Stimulating Hormone 3.04 uIU/mL (0.32-4.0)
== END 2022-04-01 08:29 | disposition home or self-care (01) ==
LOC: HO.LAB 08:28
PROVIDERS: Visit Provider Internal Medicine
DX: O99.280 Endocrine, nutritional and metabolic diseases complicating pregnancy, unspecified trimester (principal); E03.9 Hypothyroidism, unspecified
CPT/HCPCS: 36415; 84443

== ENCOUNTER 2023-10-25 09:18 | Outpatient (AMB) | payer OTHER, SELFPAY ==
--- NOTE | 2023-10-25 09:42 | MHC.OFFWIV ---
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 Reports feeling a POP sound and her leg moved backwards. Denies hitting her knee on the ground. Pain with walking. [facility] Medical History (Updated 04/03/22 @ 12:42 by Laverne Abdullahi DO) Goiter Abnormal glucose complicating Hypothyroidism affecting Surgical History Hx of section Family History Paternal Grandmother Breast CA Father Type 2 diabetes mellitus H/O: stroke Myocardial infarction HTN (hypertension) Mother No problems noted. 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 Current occupational exposures/hazards: No Female Reproductive History Menstrual Age of Menarche: 10 Review of Systems Const All systems reviewed & are unremarkable except as noted in HPI and below Physical Exam Vital Signs: Last Vital Signs Temp 98.1 F 10/25/23 09:43 Pulse 94 10/25/23 09:43 BP 128/76 10/25/23 09:43 Pulse Ox 97 10/25/23 09:43 Oxygen Delivery Method Room Air 10/25/23 09:43 BMI result Body Mass Index 38.3 Extrem Left lower extremity: full ROM, no joint enlargement and knee Details: normal to inspection, tenderness, swelling, normal ROM and ecchymosis; no cyanosis and no edema Assessment & Plan Assessment & Plan (1) Left knee pain: Code(s): M25.562 - Pain in left knee Qualifiers: Chronicity: acute Qualified Code(s): M25.562 - Pain in left knee Plan: RICE ACETAMINOPHEN FOR PAIN XRAY TO R/O FX Medications: New acetaminophen TAKE 2 TABS EVERY 8 HOURS FOR PAIN 500 mg PO Q6H PRN 30 caps 0RF KNEE PAIN Coding Level of Care Code Est Pt Level 3 (95173) Diagnoses Acute pain of left knee M25.562 Chronicity: acute
[2023-10-25 09:43] VITALS: BP 128/76; PULSE 94; TEMP 36.7; O2SAT 97; BMI 38.3
== END 2023-10-25 10:55 | disposition home or self-care (01) ==
PROVIDERS: Visit Provider Nurse Practitioner Family
DX: M25.562 Pain in left knee (principal)
CPT/HCPCS: 99213

== ENCOUNTER 2023-10-25 10:17 | Outpatient (REF) | payer OTHER, SELFPAY ==
--- NOTE | ~2023-10-25 | XR_ITS ---
EXAMINATION: XR KNEE, LEFT CLINICAL INFORMATION: Pain in the left knee COMPARISON: None available. TECHNIQUE: Four views of the left knee. FINDINGS: No fracture or joint effusion. Alignment is anatomic. Joint spaces are maintained. No abnormal soft tissue calcification. XR/XR knee LT 4V IMPRESSION: Normal left knee.
== END 2023-10-25 10:18 | disposition home or self-care (01) ==
LOC: HO.HMGCX 10:17
PROVIDERS: Visit Provider Nurse Practitioner Family
DX: M25.562 Pain in left knee (principal)
CPT/HCPCS: 73564

== ENCOUNTER 2023-11-19 09:51 | Outpatient (AMB) | payer OTHER, SELFPAY ==
--- NOTE | 2023-11-19 10:16 | MHC.OFFVIS ---
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 On 10/24/23 she fell hyperextending the knee, when this happened she felt a pop. Patient reports that the pain has decreased but she is still having pain on the medial aspect of the knee. She feels this pain all the time, worsening with kneeling. 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 She says she fell and hyperextended her left knee, and felt a pop in her knee. She complains of pain that is constant, in the medial aspect of her knee. Her pain worsens with activities such as kneeling. She says her pain has improved somewhat since her injury, but is still present. COUNTS INCLUDE 234 BEDS AT THE [facility] Medical History (Updated 11/20/23 @ 09:42 by Bhavin Dee MD) Goiter Abnormal glucose complicating Hypothyroidism affecting Surgical History Hx of section Family History Paternal Grandmother Breast CA Father Type 2 diabetes mellitus H/O: stroke Myocardial infarction HTN (hypertension) Mother No problems noted. Paternal Grandfather Lung cancer Maternal Grandmother Type 2 diabetes mellitus Sister Type 1 diabetes mellitus Social History (Updated 11/19/23 @ 10:18 by Melanie Brink CMA) Household Members: Spouse and Children Both parents involved: Yes Caregiver staying overnight: No Housing: Apartment Are you a primary home care chaplain to a significant other at home: No Do you presently have visiting nurse or other home services: No 75 years or older and lives alone: No Alcohol intake: never Patient Tobacco Use Status: Never used Tobacco Agree to transfusion: Yes service: No Current occupational status: employed and unemployed 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 Resp Other: No audible wheezing Effort & Inspection: normal respiratory effort and able to speak in complete sentences Cardio Other: Radial pulse palpable with no rythmic abnormalities Jugular venous distension: no JVD Back/Spine/Pelvis Cervical Spine: normal cervical lordosis Skin General skin exam: turgor normal Rashes: no rashes Neuro General: patient oriented x3 Extrem Other: TTP MCL origin with no instability. Otherwise nl exam Psych Appearance: grossly normal Mental Status: mental status grossly normal Speech and movement: Normal speech and movement present Affect: normal affect Attitude: cooperative Results Reviewed Results Reviewed: I personally reviewed relevant radiographs. Nl knee exam Assessment & Plan Assessment & Plan (1) Sprain of MCL (medial collateral ligament) of knee: Code(s): S83.419A - Sprain of medial collateral ligament of unspecified knee, initial encounter Plan: Imporving with time. If fails to resolve completely may return to see me. No intervention warranted at this time. Plan Prepared for Bhavin Dee MD by Romain Suarez, medical intern, on 11/19/23 at 10:24 AM, EST. Coding Level of Care Code New Pt Level 3 (22295) Diagnoses Sprain of MCL (medial collateral ligament) of knee S83.419A
== END 2023-11-19 12:40 | disposition home or self-care (01) ==
PROVIDERS: Visit Provider Orthopaedic Surgery
DX: S83.419A Sprain of medial collateral ligament of unspecified knee, initial encounter (principal); W19.XXXA Unspecified fall, initial encounter
CPT/HCPCS: 99203

== ENCOUNTER → 2023-11-19 09:51 | Outpatient (BNVA) | payer OTHER, SELFPAY | PROVIDERS: Visit Provider Orthopaedic Surgery ==

== ENCOUNTER 2024-01-16 13:43 | Outpatient (AMB) | payer OTHER, SELFPAY ==
[2024-01-16 13:47] VITALS: BP 114/70; PULSE 81; TEMP 36.3; O2SAT 100; BMI 37.2
--- NOTE | 2024-01-16 13:47 | MHC.OFFWIV ---
Intake Vital Signs 01/16/24 13:47 Height 5 ft 3 in Weight 210 lb BMI 37.2 BP 114/70 Blood Pressure Location Lt brachial Position Sitting Pulse 81 Pulse Source Pulse Oximeter Temp 97.3 F Temp Source Temporal Artery Scan Pulse Oximetry (%) 100 Oxygen Delivery Method Room Air Intake Visit Reasons: EP UTI Intake Note: Pt presents to the office today for c/o UTI symptoms. Pt states she feels like she doesn't completely empty her bladder. She states she did use a new shaving cream 3 days ago. Patient Tobacco Use Status: Never used Tobacco Allergies No Known Allergies [No Known Allergies*] Allergy (Verified 01/16/24 13:47) HPI HPI Comments History of Present Illness Details She presents with concern UTI She said + urgency and frequency No dysuria, hematuria No fever or chills + lower abdominal pressure Starting period soon; tomorrow or next day No abdnormal vaginal discharge or bleeding No medicine for symptoms Onset this am [facility] Medical History Goiter Abnormal glucose complicating Hypothyroidism affecting Surgical History Hx of section Hx of section Family History Paternal Grandmother Breast CA Father Type 2 diabetes mellitus H/O: stroke Myocardial infarction HTN (hypertension) Mother No problems noted. 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 Speaking full sentences. Skin: Warm dry throughout Eye: EOMI Respiratory: No respiratory distress Abdominal: BS present. Non-tender. No CVAT MSK: Full ROM extremities. Neurology: A/O. No aphasia or facial droop. Gait without abnormality Psych: Good mood and affect Results AMB Urinalysis, Automated UA Leukoctes 0 James/uL Last Edit by Sharon Lira CMA on 01/16/24 13:54 UA Nitrite Negative Last Edit by Sharon Lira CMA on 01/16/24 13:54 UA Urobilinogen 0.2 mg/dL Last Edit by Sharon Lira CMA on 01/16/24 13:54 UA Protein 0 mg/dL Last Edit by Sharon Lira CMA on 01/16/24 13:54 UA pH 5.0 Last Edit by Sharon Lira CMA on 01/16/24 13:54 UA Blood 0 Juan/uL Last Edit by Sharno Lira CMA on 01/16/24 13:54 UA Specific [place] 1.030 Last Edit by Sharon Lira CMA on 01/16/24 13:54 UA Ketone Negative Last Edit by Sharon Lira CMA on 01/16/24 13:54 UA Bilirubin 1 mg/dL Last Edit by Sharon Lira CMA on 01/16/24 13:54 UA Glucose 0 mg/dL Last Edit by Sharon Lira CMA on 01/16/24 13:54 AMB Test Urine AMB Test Urine Negative Last Edit by Sharon Lira CMA on 01/16/24 14:04 Results Reviewed Results Reviewed: Laboratory Last Values Urine pH (Auto) 5.0 01/16/24 13:53 Specific [place] (Auto) 1.030 01/16/24 13:53 Urine Protein (Auto) 0 mg/dL 01/16/24 13:53 Glucose (UA)(Auto) 0 mg/dL 01/16/24 13:53 Urine Ketones (Auto) Negative 01/16/24 13:53 Urine Blood (Auto) 0 Juan/uL 01/16/24 13:53 Urine Nitrite (Auto) Negative 01/16/24 13:53 Urine Bilirubin (Auto) 1 mg/dL 01/16/24 13:53 Urine Urobilinogen (Auto) 0.2 mg/dL 01/16/24 13:53 Leukocyte Esterase (Auto) 0 James/uL 01/16/24 13:53 Assessment & Plan Assessment & Plan (1) Urinary urgency: Code(s): R39.15 - Urgency of urination Plan: Patient seen and evaluated. U/a: non-specific for any infection or concern nephrolithiasis or hyperglycemia Symptoms appear consistent with UTI Will send in macrobid Advised pt to increase fluids and monitor symptoms If worse, take medicine; avoid alcohol. HCG negative Patient gave verbal understanding and had no additional questions or concerns at time of discharge All questions answered Orders: Orders AMB Urinalysis Automated Today Z13.9 - Encounter for screening, unspecified AMB HCG Urine Test Today Z32.02 - Encounter for test, result negative Medications: New nitrofurantoin monohyd/m-cryst 100 mg (Macrobid) must administer with a meal/food 100 mg PO BID 10 caps 0RF Coding Level of Care Code Est Pt Level 3 (96775) Diagnoses Urinary urgency R39.15
== END 2024-01-16 14:20 | disposition home or self-care (01) ==
PROVIDERS: Visit Provider Physician Assistant
DX: R39.15 Urgency of urination (principal); Z32.02 Encounter for pregnancy test, result negative
CPT/HCPCS: 81003; 81025; 99213

== ENCOUNTER 2024-11-03 09:51 | Outpatient (AMB) | payer OTHER, SELFPAY ==
--- NOTE | 2024-11-03 10:00 | MHC.PC.OV ---
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 Intake Note: new patient to establish care Human Resource Adviser Required: No Allergies No Known Allergies [No Known Allergies*] Allergy (Verified 11/03/24 10:40) Medication List - Last Reconciled 11/03/24 by REBA Perez No Known Home Meds Tobacco use date assessed: 11/03/24 Dental Screening Dental Screen Date: 11/03/24 Did you have a dental visit in the last 12 months?: Yes Did you have a dental problem in the last 6 months where you did not have access to dental care?: No Was dental information given to patient?: Patient has dentist HPI HPI Comments History of Present Illness Details 23-year-old with 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 I advise her PCP to check a surveillance US once a year to assess for growth or change. If at any point the nodule does grow or change and requires FNA biopsy I would be happy to see her back at that time. us 2021 Optho no glasses, no concerns The patient is a 23-year-old female presenting with the need to establish primary care & for CPE. She has a history of Marie's Thyroiditis and has experienced thyroid nodules. During her , she was treated with levothyroxine but has not been on medication since . She reports noticing weight gain and hair loss which she associates with her thyroid condition. These symptoms prompted her to seek an evaluation of her current thyroid levels to ensure proper management. She has a pink red lesion on her right upper arm that is itchy. Has been present for years. Reports that dermatology is aware but did not remove. She is worried about this. Additionally, the patient has a significant family history of breast cancer, with her paternal grandmother having undergone a mastectomy. She is concerned about the implications of this family history and any necessary preventative measures. She has two children, including a bout of gestational diabetes during her last , which was managed with dietary changes. She had a section for childbirth but no other surgeries. 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 - Family: Has two children, a 7-year-old daughter, and a 2-year-old son. - Family history: Significant for breast cancer in paternal grandmother and stage 3 melanoma in older sister. - Recent weight loss effort: Previously lost around 70 pounds but gained back 10 pounds. - Health habits: Expressed concern about long-term management of health conditions and preventative care. Physical Exam General: Well developed, well nourished, in no acute distress. Appears stated age. Head: Normocephalic, atraumatic. Eyes: Pupils are equal, round and reactive to light and accommodation. Conjunctivae are clear. Vision grossly normal. Ears: TMs clear AU, EACS WNL Nose: Patent, without discharge. Mouth: There are no ulcers or lesions noted. No inflammation, no post nasal drip, no plaques nor exudates. Neck: Supple, no adenopathy, + thyromegaly nodular nontender Lungs: Clear to auscultation bilaterally. No rales, rhonchi or wheeze noted. Good air flow in all chin. Heart: Regular rate and rhythm. No murmurs, click, rubs or gallops are noted. Abdomen: Bowel sounds present in all quadrants. The abdomen is soft, nontender, with no masses or organomegaly noted. No hernias are noted. Musculoskeletal: Joints are nontender, without swelling, redness, or effusions. Range of motion is observed to be normal. Pulses: Peripheral pulses are equal and palpable bilaterally. Extremities: No clubbing, cyanosis nor edema is noted. Neurologic: Gait and station normal. Cranial Nerves 2-12 intact. Motor strength grossly symmetrical and intact. No sensory loss. Balance normal. Skin: No rashes, ulcers, or lesions noted. Turgor is good. Skin color is good. Hair and nails are without abnormalities. Right upper arm prox to AC is a raised pink papule Psych: Normal eye contact, affect and mood appropriate, and normal interactions. Patient is alert and appropriate to context. Discussion Notes During the visit, we discussed the importance of reevaluating the patient's thyroid function due to symptoms she is experiencing, such as weight gain and hair loss, potentially indicating inadequately managed hypothyroidism. I suggested updated lab work, including thyroid function tests and a comprehensive metabolic panel, to assess not only thyroid activity but also blood sugar levels given her previous history of gestational diabetes. We talked about her family history of breast cancer and the need for vigilance with regular self-exams and screenings as recommended based on family history considerations. I advised on potential management strategies for her skin concerns and encouraged a follow-up with dermatology for the bothersome skin lesion, emphasizing the need for a thorough evaluation due to the family history of melanoma. The necessity of annual physicals and preventive care was emphasized, and I guided her on using the patient portal for communication and appointments. Patient Instructions - Schedule and complete thyroid function and metabolic panel tests today. - Monitor thyroid symptoms, such as hair loss and weight changes, and report any significant changes. - Perform monthly breast self-examinations and notify us of any changes. - Follow up with dermatology for evaluation and possible removal of bothersome skin lesions. - Use the patient portal for any questions, appointment requests, or prescription refills. - Schedule an annual physical examination. Plan - Reevaluate the patient's thyroid function with updated laboratory testing to assess current thyroid hormone levels. - Monitor for potential recurrence or exacerbation of hypothyroid symptoms and manage with appropriate thyroid medication adjustments if indicated. - Check blood glucose and HbA1c levels to assess for risk of type 2 diabetes mellitus due to past gestational diabetes. - Discuss preventive care options concerning the family history of breast cancer, ensuring patient awareness and adherence to recommended surveillance protocols. - Encourage dermatological follow-up for the itchy skin lesion, considering familial melanoma history, to ensure thorough examination and management. - Reinforce the importance of routine preventive care, including annual physical examinations and staying current on vaccinations. RTO 1 YEAR FOR CPE, SOONER PRN Patient was informed and verbally consented to the use of an ambient scribe for clinic note documentation during this visit. [facility] Medical History Goiter Abnormal glucose complicating Hypothyroidism affecting Surgical History Hx of section Hx of section Family History (Updated 11/03/24 @ 10:03 by Adalberto Malone MA) Paternal Grandmother Breast CA Father Type 2 diabetes mellitus H/O: stroke Myocardial infarction HTN (hypertension) Mother No problems noted. Paternal Grandfather Lung cancer Maternal Grandmother Type 2 diabetes mellitus Sister Type 1 diabetes mellitus Social History (Updated 11/03/24 @ 10:02 by Adalberto Malone MA) Household Members: Spouse and Children Both parents involved: Yes Caregiver staying overnight: No Housing: Apartment Are you a primary transitional care nurse to a significant other at home: No Do you presently have visiting nurse or other home services: No 75 years or older and lives alone: No Alcohol intake: current Alcohol intake frequency: a few times a month Patient Tobacco Use Status: Never used Tobacco e-Cigarette/Vaping Use: Never Used Second Hand Smoke Exposure: No Agree to transfusion: Yes service: No Current occupational status: employed and unemployed 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 1. Little interest or pleasure in doing things: not at all 2. Feeling down, depressed, or hopeless: not at all 3. Trouble falling or staying asleep, or sleeping too much: not at all 4. Feeling tired or having little energy: not at all 5. Poor appetite or overeating: more than half the days 6. Feeling bad about yourself - or that you are a failure or have let yourself or your family down: not at all 7. Trouble concentrating on things, such as reading the newspaper or watching television: not at all 8. Moving or speaking so slowly that other people could have noticed. Or the opposite - being so fidgety or restless that you have been moving around a lot more than usual: not at all 9. Thoughts that you would be better off or of hurting yourself in some way: not at all Total score: 2 Depression Screening Interpretation: Negative Depression Screening Done: Yes 37378 - PHQ-9 Billing: Yes Source: Developed by Drs. Roberto Nicole, Nilda Ng, Pk Latif and colleagues, with an educational tonya from [employer]. Thrive Questionnaire Date Thrive assessed: 11/03/24 I am a: Patient What is your living situation today?: I have a steady place to live Within the past 12 months, did the food you bought not last and you didn't have the money to get more?: Never true Within the past 12 months, did you worry whether your food would run out before you got money to buy more?: Never true Do you have trouble paying for medicines?: No Do you have trouble getting transportation to medical appointments?: No Do you have trouble paying your heating and electricity bill?: No Do you have trouble taking care of your child, family member or friend?: No Do you have trouble with day-to-day activities such as bathing, preparing meals, shopping, managing finances, etc.?: No Are you currently unemployed and looking for a job?: No Are you interested in more education?: No Please select the resources that you would like help with: None Currently or been in a relationship where the following occur: No concerns reported THRIVE Score: 0 AUDIT C Alcohol Use Questionnaire (AUDIT-C) 1. How often do you have a drink containing alcohol?: Monthly or less 2. How many drinks containing alcohol do you have on a typical day when you are drinking?: 1 or 2 3. How often do you have six or more drinks on one occasion?: Never Total Score: 1 Score Reviewed/Action Taken: Yes RITIKA-7 AMB Questionnaire RITIKA-7 Date RITIKA - 7 assessed: 11/03/24 Feeling nervous, anxious, or on edge: 0 = Not at all Not being able to stop or control worryin = Not at all Worrying too much about different things: 0 = Not at all Trouble relaxin = Not at all Being so restless that it is hard to sit still: 0 = Not at all Becoming easily annoyed or irritable: 0 = Not at all Feeling afraid as if something awful might happen: 0 = Not at all Total RITIKA-7 score (0-4 normal; 5-9 mild; 10-14 moderate; 15-21 severe): 0 Source: Developed by Drs. Roberto Nicole, Nilda Ng, Pk Latif and colleagues, with an educational tonya from [employer]. RITIKA-7 Assessment Billing RITIKA-7 Assessment Tool: RITIKA-7 Assessment 66378 Physical exam (Primary Care) Vital Signs: Last Vital Signs Temp 96.8 F 11/03/24 10:06 Pulse 82 11/03/24 10:06 Resp 12 11/03/24 10:06 BP 102/66 11/03/24 10:06 Pulse Ox 99 11/03/24 10:06 Oxygen Delivery Method Room Air 11/03/24 10:06 BMI result Body Mass Index 36.9 BMI Assessment/Plan discussion: High BMI High, discussed plan: lifestyle Tobacco/Smoking Status: Tobacco use Status Tobacco use date assessed 11/03/24 11/03/24 10:08 Patient Tobacco Use Status Never used Tobacco 11/03/24 10:08 e-Cigarette/Vaping Use Never Used 11/03/24 10:08 PHQ-9: PHQ-9 Score PHQ-9: Total score 2 11/03/24 10:37 Depression Screening Interpretation: Negative Thrive Assessment: Date of Thrive Assessment Date Thrive assessed 11/03/24 11/03/24 10:08 Currently or been in a relationship where the following occur: No concerns reported Coding Level of Care Code New Pt Prev Care 18-39yr(26842 Diagnoses Encounter for general adult medical examination without abnormal findings Z00.00 Family history of breast cancer Z80.3 Hypothyroidism due to Marie thyroiditis E06.3 Hypothyroidism type: due to Marie's thyroiditis Thyroid nodule E04.1 Laboratory exam ordered as part of routine general medical examination Z00.00 Family hx of melanoma Z80.8 Personal history of gestational diabetes Z86.32 BMI 36.0-36.9,adult Z68.36 Class 2 obesity due to excess calories without serious comorbidity with body mass index (BMI) of 36.0 to 36.9 in adult E66.812; E66.09; Z68.36 Obesity type: due to excess calories Serious obesity comorbidity presence: without serious comorbidity Additional Codes RITIKA-7 Assessment Billing - RITIKA-7 Assessment Tool: RITIKA-7 Assessment 78902 ([id number]) PHQ-9 - 43212 - PHQ-9 Billing: Yes ([id number]) Assessment & Plan Assessment & Plan (1) Encounter for general adult medical examination without abnormal findings: Code(s): Z00.00 - Encounter for general adult medical examination without abnormal findings (2) Family history of breast cancer: Comment: paternal grandmother Code(s): Z80.3 - Family history of malignant neoplasm of breast Category: Medical (3) Hypothyroidism: Code(s): E03.9 - Hypothyroidism, unspecified Category: Medical Qualifiers: Hypothyroidism type: due to Marie's thyroiditis Qualified Code(s): E06.3 - Autoimmune thyroiditis (4) Thyroid nodule: Comment: She has a subcentimeter nodule that does not meet indication for FNA biopsy at this time. I advise her PCP to check a surveillance US once a year to assess for growth or change. If at any point the nodule does grow or change and requires FNA biopsy I would be happy to see her back at that time. 2021 Code(s): E04.1 - Nontoxic single thyroid nodule Category: Medical (5) Laboratory exam ordered as part of routine general medical examination: Code(s): Z00.00 - Encounter for general adult medical examination without abnormal findings Category: Medical (6) Family hx of melanoma: Comment: SISTER Code(s): Z80.8 - Family history of malignant neoplasm of other organs or systems Category: Medical (7) Personal history of gestational diabetes: Code(s): Z86.32 - Personal history of gestational diabetes Category: Medical (8) BMI 36.0-36.9,adult: Code(s): Z68.36 - Body mass index [BMI] 36.0-36.9, adult Category: Medical (9) Class 2 obesity with body mass index (BMI) of 36.0 to 36.9 in adult: Code(s): E66.812 - Obesity, class 2; Z68.36 - Body mass index [BMI] 36.0-36.9, adult Category: Medical Qualifiers: Obesity type: due to excess calories Serious obesity comorbidity presence: without serious comorbidity Qualified Code(s): E66.812 - Obesity, class 2; E66.09 - Other obesity due to excess calories; Z68.36 - Body mass index [BMI] 36.0-36.9, adult Plan . Orders: Orders Lipid Panel Today E03.9 - Hypothyroidism, unspecified, Z00.00 - Encounter for general adult medical examination without abnormal findings TSH reflex Free T4 Today E03.9 - Hypothyroidism, unspecified, Z00.00 - Encounter for general adult medical examination without abnormal findings Complete Blood Count no Diff Today E03.9 - Hypothyroidism, unspecified, Z00.00 - Encounter for general adult medical examination without abnormal findings Comprehensive Met. Panel Today E03.9 - Hypothyroidism, unspecified, Z00.00 - Encounter for general adult medical examination without abnormal findings Hemoglobin A1c Today E03.9 - Hypothyroidism, unspecified, Z00.00 - Encounter for general adult medical examination without abnormal findings Microalbumin, Random (w Creat) Today E03.9 - Hypothyroidism, unspecified, Z00.00 - Encounter for general adult medical examination without abnormal findings Vitamin B12 and Folate Today E03.9 - Hypothyroidism, unspecified, Z00.00 - Encounter for general adult medical examination without abnormal findings Vitamin D 25-OH Total Today E03.9 - Hypothyroidism, unspecified, Z00.00 - Encounter for general adult medical examination without abnormal findings Patient Instructions: Health screenings for women You should visit your health care provider from time to time, even if you are healthy. The purpose of these visits is to: Screen for medical issues Assess your risk for future medical problems Encourage a healthy lifestyle Update vaccinations and other preventive care services Help you get to know your provider in case of an illness Information Even if you feel fine, you should still see your provider for regular checkups. These visits can help you avoid problems in the future. For example, the only way to find out if you have high blood pressure is to have it checked regularly. High blood sugar and high cholesterol levels also may not have any symptoms in the early stages. A simple blood test can check for these conditions. There are specific times when you should see your provider or receive specific health screenings. The [place] Preventive Services Task Force publishes a list of recommended screenings. Below are screening guidelines for women ages 18 to 39. BLOOD PRESSURE SCREENING Your blood pressure should be checked at least once every 3 to 5 years if: Your blood pressure is in the normal range (top number less than 120 mm Hg and bottom number less than 80 mm Hg) You don't have risk factors for high blood pressure Ask your provider if you need your blood pressure checked more often if: The top number is 120 to 129 mm Hg or the bottom number is 70 to 79 mm Hg You have diabetes, heart disease, kidney problems, are overweight, or have certain other health conditions You have a first-degree relative with high blood pressure You are Black You had high blood pressure during a If the top number is 130 mm Hg or greater or the bottom number is 80 mm Hg or greater, this is considered stage 1 hypertension. Schedule an appointment with your provider to learn how you can reduce your blood pressure. Watch for blood pressure screenings in your area. Ask your provider if you can stop in to have your blood pressure checked. BREAST CANCER SCREENING Experts do not agree about the benefits of breast self-exams in finding breast cancer or saving lives. Talk to your provider about what is best for you. A screening mammogram is not recommended for most women under age 40. Your provider may discuss and recommend mammograms, MRI scans, or ultrasounds if you have an increased risk for breast cancer, such as: A mother or sister who had breast cancer at a young age (most often starting screening earlier than the age the close relative was diagnosed) You carry a high-risk genetic marker CERVICAL CANCER SCREENING Cervical cancer screening should start at age 21 years unless your provider advises otherwise. After the first test: Women ages 21 through 29 should have a Pap test every 3 years. Exoprts do not agree on whether HPV testing is recommended for this age group. Women ages 30 through 65 should be screened with either a Pap test every 3 years or the HPV test every 5 years or both tests every 5 years (called cotesting ). Women who have been treated for precancer (cervical dysplasia) should continue to have Pap tests for 20 years after treatment or until age 65, whichever is longer. If you have had your uterus and cervix removed (total hysterectomy), and you have not been diagnosed with cervical cancer or precancer (high grade cervical neoplasia), you do not need cervical cancer screening. CHOLESTEROL SCREENING Cholesterol screening should begin at: Age 45 for women with no known risk factors for coronary heart disease Age 20 for women with known risk factors for coronary heart disease Repeat cholesterol screening should take place: Every 5 years for women with normal cholesterol levels More often if changes occur in lifestyle (including weight gain and diet) More often if you have diabetes, heart disease, kidney problems, or certain other conditions DIABETES SCREENING You should be screened for diabetes starting at age 35 and then repeated every 3 years if you have no risk factors for diabetes. Screening may need to start earlier and be repeated more often if you have other risk factors for diabetes, such as: You have a first degree relative with diabetes. You are overweight or have obesity. You have high blood pressure, prediabetes, or a history of heart disease. Screening for diabetes should be done if you are planning to become and you are overweight and have other risk factors such as high blood pressure. DENTAL EXAM Go to the dentist once or twice every year for an exam and cleaning. Your dentist will evaluate if you need more frequent visits. EYE EXAM Have an eye exam every 5 to 10 years before age 40. If you have vision problems, have an eye exam every 2 years or more often if recommended by your provider. You should have an eye exam that includes an examination of your retina (back of your eye) at least every year if you have diabetes. IMMUNIZATIONS Commonly needed vaccines include: Flu shot: get one every year. COVID-19 vaccine: ask your provider what is best for you. Tetanus-diphtheria and acellular pertussis (Tdap) vaccine: have one at or after age 19 as one of your tetanus-diphtheria vaccines if you did not receive it as an adolescent. Tetanus-diphtheria: have a booster (or Tdap) every 10 years. Varicella vaccine: receive 2 doses if you never had chickenpox or the varicella vaccine. Hepatitis B vaccine: receive 2, 3, or 4 doses, depending on your exact circumstances. Measles, mumps, and rubella (MMR) vaccine: receive 1 to 2 doses if you are not already immune to MMR. Your provider can tell you if you are immune. Ask your provider about the human papillomavirus (HPV) vaccine if: You have not received the HPV vaccine in the past You have not completed the full vaccine series (you should catch up on this shot) Ask your provider if you should receive other immunizations if you have certain health problems that increase your risk for some diseases such as pneumonia. INFECTIOUS DISEASE SCREENING Women who are sexually active should be screened for chlamydia and gonorrhea up until age 25. Women 25 years and older should be screened for chlamydia and gonorrhea if at high risk. Screening for hepatitis C: All adults ages 18 to 79 should get a one-time test for hepatitis C. people should be screened at every . Screening for human immunodeficiency virus (HIV): All people ages 15 to 65 should get a one-time test for HIV. Depending on your lifestyle and medical history, you may also need to be screened for infections such as syphilis and HIV, as well as other infections. PHYSICAL EXAM All adults should visit their provider from time to time, even if they are healthy. The purpose of these visits is to: Screen for disease Assess your risk of future medical problems Encourage a healthy lifestyle Update your vaccinations and other preventive care services Maintain a relationship with a provider in case of an illness Your height, weight, and BMI should be checked at every exam. During your exam, your provider may ask you about: Depression and anxiety Diet and exercise Alcohol and tobacco use Safety issues, such as using seat belts, smoke detectors, and intimate partner violence Your medicines and risk for interactions SKIN SELF-EXAM Your provider may check your skin for signs of skin cancer, especially if you're at high risk, such as if you: Have had skin cancer before Have close relatives with skin cancer Have a weakened immune system OTHER SCREENING Talk with your provider about colon cancer screening if you have a strong family history of colon cancer or polyps, or if you have had inflammatory bowel disease or polyps yourself. Routine bone density screening of women under 40 is not recommended. Walk-In Care (Urgent Care): We Make it Easy Walk-in for urgent medical issues such as: ? Seasonal Allergies ? Insect Bites ? Cough ? Diarrhea ? Acute Asthma Attacks ? Back, Knee or Joint Pain ? Ear Infection ? Fever without a Rash ? Headaches ? Nausea ? [place] Eye, Rash or Skin Irritation ? Sore Throat ? Sports Physicals ? Vomiting Most insurances are accepted. Patients do not need to be part of the [facility] to seek care at the walk-in clinic. Locations [facility] [address], [place] [address] ? [phone] [facility] Walk-In Care in [place] provides services to ages 18 and over. Open Sunday-Sunday: 8 a.m. to 5 p.m. and Sunday: 9 a.m. to 3 p.m.* *Hours may vary due to staffing availability. To confirm Walk-In Care hours in [place], please call [phone]. [address] [facility], [place] [address] ? [phone] [facility] Walk-In Care in [place] provides services to ages 12 and over. Open Sunday-Sunday: 8 a.m. to 5 p.m. Hours may vary due to staffing availability. To confirm Walk-In Care hours in [place], please call [phone]. LABORATORY SERVICES: [facility] Lab ? Primary Location [address] [place] [address] Sunday through Sunday 6:00 AM ? 5:00 PM Sunday 7:00 AM ? 11:00 AM* [phone] The [facility] Lab is centrally located near the front entrance of the [facility] for easy outpatient access. Convenient parking is provided for outpatients. *Hours may vary due to staffing availability. To confirm Laboratory hours for any location, please call [phone]. Offsite Location For your convenience, we offer offsite laboratory draw stations at the following locations: [address] [place] [address] ? [address], [address] Sunday through Sunday 7:30 AM ? 1:00 PM* [phone] *Hours may vary due to staffing availability. To confirm Laboratory hours for any location, please call [phone]. [place] ? [address] Sunday through Sunday 6:00 AM ? 3:30 PM* Sunday 6:30 AM ? 3 PM* [phone] *Hours may vary due to staffing availability. To confirm Laboratory hours for any location, please call [phone] [place] [address] Sunday through Sunday 7:30 AM ? 4:00 PM* [phone] *Hours may vary due to staffing availability. To confirm Laboratory hours for any location, please call [phone] [place] [address] Sunday through 9:00 AM ? 4:00 PM* *Hours may vary due to staffing availability. To confirm Laboratory hours for any location, please call [phone]. Appointments are not necessary. Walk-ins are welcome. Like all the departments throughout the [facility], our Lab undergoes frequent reviews to ensure the quality and accuracy of test results, and our staff takes special pride in its status as a nationally accredited facility. Patient Portal: ONE PATIENT. ONE RECORD. BETTER CARE. [facility] has a fully integrated, cutting-edge mobile electronic health information system that has revolutionized the way we care for our patients and manage our organization. This system improves communication and coordination enabling us to provide safe, higher-quality care, and an overall positive experience for staff and patients. Our first priority, as always, is to deliver the highest quality care possible. The system is running in the background supporting that priority. This portal is for all [facility] services and practices. If you are experiencing any technical difficulties with enrolling or logging into the Patient Portal please complete the [facility] Patient Portal Technical Support Form. [facility] now offers a new secure on-line interactive tool for patients to review their health information ? ?Patient Portal. This interactive web portal will enable patients and their families to take an active role in their care by providing easy, secure access to their health information via the internet. The Patient Portal provides patients with instant access to their health information, including laboratory results, medications, allergies, demographic information, visit history, and more. In addition to managing their own care, parents and health care proxies with authorized consent will appreciate the ability to access the records of those individuals for whom they provide care. Please note: if you wish to gain access (Proxy) to another patient?s portal, you will be required to come to the Medical Records Department in person at [facility]. Both the patient giving proxy access and the proxy will need to provide photo identification and complete the appropriate authorization. The Patient Portal also allows track their appointments online. The [facility] Patient Portal also saves patients time by allowing them to submit updates to their demographic and contact information prior to their visits. Portal email notifications will also alert patients to any new activity on their portal, such as test results and new appointments. In order to initially enroll in the [facility] Patient Portal, you will need to enter some required information including the following: your [facility] Medical Record number your personal home email address name date of Please note: In order to enroll in the [facility] Patient Portal, we need to have your email address on file in your electronic medical record. ?The email address needs to be specific for one person (yourself) in order for your Portal enrollment to be successful. ?You can update your email address in person with our Registration staff when you are registering for a hospital visit. ?Otherwise, you will need to come to the Health Information Management (Medical Records) Department at [facility]. ?We are open from Sunday ? Sunday from 7:30 a.m. ? 4:30 p.m. ?You will be required to present a photo id. Once you have successfully enrolled in the Patient Portal, you will receive a one-time user id and password for the Portal, sent to your email address. ?This will allow you to log into the Patient Portal within 99 hrs and reset your own logon id and password, and define personal security questions. ?Once your permanent login and password have been set, you can log into the [facility] Patient Portal at any time via the blue button above or from the Portal Logon button on any page of the [facility] website. [facility] and [facility] encourage all of our patients to enroll in Patient Portal as it presents a valuable opportunity for patients and their families to actively participate in their care and stay healthy Welcome to [facility]. ?We look forward to working with you.
[2024-11-03 10:06] VITALS: BP 102/66; PULSE 82; RESP 12; TEMP 36; O2SAT 99; BMI 36.9
== END 2024-11-03 10:56 | disposition home or self-care (01) ==
PROVIDERS: PCP Nurse Practitioner Family; Visit Provider Nurse Practitioner Family
DX: Z00.00 Encounter for general adult medical examination without abnormal findings (principal); Z80.3 Family history of malignant neoplasm of breast; E06.3 Autoimmune thyroiditis; E04.1 Nontoxic single thyroid nodule; Z80.8 Family history of malignant neoplasm of other organs or systems; Z86.32 Personal history of gestational diabetes; Z68.36 Body mass index [BMI] 36.0-36.9, adult; E66.812 Obesity, class 2; E66.09 Other obesity due to excess calories

== ENCOUNTER → 2024-11-03 09:51 | Outpatient (BNVA) | payer OTHER, SELFPAY | PROVIDERS: PCP Nurse Practitioner Family; Visit Provider Nurse Practitioner Family | DX: Z00.00 Encounter for general adult medical examination without abnormal findings (principal); E06.3 Autoimmune thyroiditis; E04.1 Nontoxic single thyroid nodule; E66.812 Obesity, class 2; E66.09 Other obesity due to excess calories; Z68.36 Body mass index [BMI] 36.0-36.9, adult; Z86.32 Personal history of gestational diabetes; Z80.3 Family history of malignant neoplasm of breast; Z80.8 Family history of malignant neoplasm of other organs or systems | CPT/HCPCS: 96127 ==

== ENCOUNTER 2024-11-03 11:11 | Outpatient (REF) | payer OTHER, SELFPAY ==
[2024-11-03 14:36] LABS: Hematocrit 39.3 % (37.0-47.0); Hemoglobin 12.1 g/dl (12.0-16.0); Mean Corpuscular HGB Conc 30.8 g/dl (31.0-35.0); Mean Corpuscular Hemoglobin 24.5 pg (27.0-33.0); Mean Corpuscular Volume 79.7 fL (80.0-98.0); Mean Platelet Volume 11.5 fL (9.4-12.3); Platelet Count 227 X10*3/uL (160-400); Red Blood Count 4.93 X10*6/uL (4.20-5.50); Red Cell Distribution Width 14.5 % (11.0-16.0); White Blood Count 4.4 X10*3/uL (4.8-10.8)
[2024-11-03 14:42] LABS: Estimated Average Glucose 123 mg/dL; Hemoglobin A1C 124.6064 umol/L; Hemoglobin A1c % 5.9 % (<6.0); Total Hemoglobin (HGBA1C) 3070.3699 umol/L
[2024-11-03 15:03] LABS: Creatinine Urine 216.36 mg/dL; Microalbum/Creatinine Ratio Ur 6.4 ug/mg cr (<30)
[2024-11-03 15:15] LABS: Alanine Aminotransferase 16 U/L (0-31); Anion Gap 10 (12-20); Aspartate Amino Transferase 30 U/L (5-31); Bilirubin Total 0.2 mg/dL (0.0-1.0); Blood Urea Nitrogen 10 mg/dL (9-16); Carbon Dioxide 25 mmol/L (22-29); Chloride 110 mmol/L (96-108); Cholesterol 149 mg/dL (<200); Estimated Glomerular Filt Rate > 60; Glucose Random 92 mg/dL (60-115); HDL Cholesterol 41 mg/dL (>40); LDL Cholesterol Calculated 95 mg/dL (<100); Potassium 3.9 mmol/L (3.3-5.1); Sodium 141 mmol/L (135-145); Total Protein 7.2 g/dL (6.5-8.0); Triglycerides 66 mg/dL (<150)
[2024-11-03 15:18] LABS: Folate 12.8 ng/mL (> or = 4.0); Vitamin B12 468 pg/mL (200-900)
[2024-11-03 15:26] LABS: TSH reflex Free T4 4.78 uIU/mL (0.32-4.0); Vitamin D 25-OH Total 22.4 ng/mL (>30)
[2024-11-03 15:52] LABS: Alkaline Phosphatase 55 U/L (39-117)
[2024-11-03 16:10] LABS: Free T4 (Free Thyroxine) 0.85 ng/dL (0.71-1.85)
== END 2024-11-03 11:12 | disposition home or self-care (01) ==
LOC: HO.WFDLDS 11:11
PROVIDERS: Visit Provider Nurse Practitioner Family
DX: Z00.00 Encounter for general adult medical examination without abnormal findings (principal); E03.9 Hypothyroidism, unspecified; Z13.1 Encounter for screening for diabetes mellitus
CPT/HCPCS: 36415; 80053; 80061; 82043; 82306; 82570; 82607; 82746; 83036; 84439; 84443; 85027

== ENCOUNTER → 2024-11-10 15:29 | Outpatient (BNVA) | payer OTHER, SELFPAY | PROVIDERS: PCP Nurse Practitioner Family; Visit Provider Nurse Practitioner Family ==

== ENCOUNTER → 2024-11-10 15:29 | Outpatient (AMB) | payer OTHER, SELFPAY ==
--- NOTE | 2024-11-10 16:03 | A.OFFPC_ITS ---
Intake Visit Reasons: weight management. Allergies No Known Allergies [No Known Allergies*] Allergy (Verified 11/10/24 16:03) Medication List - Last Reconciled 11/10/24 by CHUN Perez No Known Home Meds Tobacco use date assessed: 11/03/24 Dental Screening Dental Screen Date: 11/03/24 HPI HPI Comments History of Present Illness Details Telehealth appointment: The patient is a 23-year-old female presenting with concerns regarding weight management and potential medication options. She has been experiencing difficulty with weight loss despite being in a calorie deficit for three months and adhering to a daily intake of 1750 calories. Historically, she had effective weight loss at this intake level a few years ago but is now experiencing weight gain, despite being active through her work involving house [employer]. She report s having tried various dietary approaches and calorie cycling without success. Thyroid function was tested, revealing a slight abnormality, although it is not contributing significantly to her current weight challenges. She has not been on medication for thyroid dysfunction since her , which concluded in 2021. Her height is noted as 5 feet 4 inches, and she is concerned that her current w eight exceeds her ideal range. Additionally, she expresses reluctance about starting medication for weight management due to concerns about long-term side effects and a general preference to avoid pharmacotherapy. Interested in learning about meds. Social History - Employment: Works actively in [employer]. - Nutrition: Currently in a calorie defi cit, consuming 1750 calories per day. Has previously consulted with a dietitian. - Weight Management: Has engaged in stru ctured dietary regimens and previously worked with a knockout man for two and a half years. Results - Labs: Thyroid function test indicated slight abnormality. Discussion Notes During the consultation, we reviewed the patient's concerns about weight management and explored non-pharmacological approaches versus potential medication. The patient expressed interest in the injectable medication Wegovy due to a friend's positive experience but stated apprehensions regarding long- term effects and lack of comprehensive awareness about the medications' perpetual use and serious side effects such as increased cancer risk. We discussed a metabolic reset approach where she should increase caloric intake intermittently to try to reset her metabolic rate. I provided an overview of alternative medications like Wellbutrin and Metformin, highlighting their distinct mechanisms and implications, clarifying that these do not require lifelong commitment and do not pose the same potential weight regain risk upon discontinuation. Anticipatory guidance was provided regarding short-term weight gain during initial caloric increase phases, emphasizing the importance of balancing macronutrients properly. Follow-up was planned to assess the efficacy of dietary changes. Patient Instructions. - Expect and accept initial weight gain as part of the metabolic reset. - Re-evaluate the effectiveness of the d iet in a couple of weeks. Nutrition calculation: 40% protein, 30% carbs, 30% fat [place] body weight 150-180 lb 170lbs x 12cals =2040 cals/day Protein: 2040 cals/day x 0.4 = 816cals/ 4 cals pe r gram = 180- 204 grams of protein Carbs 2040 cals/day x 0.3 =612 cals/4 cals per gram = 130 -153 grams of carbs Fat 2040 cals/day x 0.3 = 612 cals/9 cals/gr ams = 48 -68 grams of Fat Deficit cals = 1840 cals/day Eat within the ranges above. Deficit every 6 weeks for 2 weeks. You can start with 1 week interevals of deficit to make it a little easier. Let me know how it goes!! Plan - Advise against using injectable weight loss medications due to risks and perpetual use requirements. - Recommend increase in daily caloric in take and intermittent cycling of intake to stimulate metabolic adjustment. - Re-evaluate the patient routinely to m onitor progress with the dietary changes and discuss further management if necessary. - Monitor thyroid function periodically, given past issues during , and reassess if required. Patient was informed and verbally consented to the use of an ambient scribe for clinic note documentation during this visit. Discussing different forms of medications to help with weight loss. Discouraged the use of GLP-1s due to the need to use lifelong, weight gain after discontinuation, cost and cancer risk. Educated about the use of Wellbutrin which can be used in patients without a seizure history. This medication works by blocking out the reward center related to mindless eating. It also has a mild stimulating effect. The side effect profile includes mild anxiety as well as a slight dizzy sensation. Another medication used is metformin, this is a diabetic medication. This medication has GI side effects. But can be very beneficial in aiding with weight loss in patients without diabetes. Topiramate was also discussed. This is a seizure medication with side effect profile that includes need to monitor LFTs as well as blood counts. One of the side effects is weight loss. Another medication, Phentermine is a stimulant/controlled substance. This is an anorexient that is used short-term medication used. =. Finally the use of a medication called Contrave, which is Wellbutrin + naltrexone can be used. The brand name is usually not cover therefore would have to prescribe the 2 medications individually. This medication works just as the Wellbutrin; naltrexone aides in further blocking of the reward center to aide in wt loss. After discussion of the above, the patient wishes to proceed with none @ this t alexandra. Total time spent caring for the patient today was 30 minutes. This includes time spent before the visit reviewing the chart, time spent during the visit, and time spent after the visit on documentation, reviewing laboratory results, diagnostic imaging, medications, performing a medically necessary evaluation, counseling on diagnoses, care coordination, ordering appropriate tests, ordering appropriate medications, review of tests performed by other providers, reporting test results with the patient, communication with other healthcare providers. [facility] Medical History Goiter Abnormal glucose complicating Hypothyroidism affecting Surgical History Hx of section Hx of section Family History (Updated 11/03/24 @ 10:03 by Adalberto Malone MA) Paternal Grandmother Breast CA Father Type 2 diabetes mellitus H/O: stroke Myocardial infarction HTN (hypertension) Mother No problems noted. Paternal Grandfather Lung cancer Maternal Grandmother Type 2 diabetes mellitus Sister Type 1 diabetes mellitus Social History (Updated 11/03/24 @ 10:02 by Adalberto Malone MA) Household Members: Spouse and Children Both parents involved: Yes Caregiver staying overnight: No Housing: Apartment Are you a primary home care assistant to a significant other at home: No Do you presently have visiting nurse or other home services: No 75 years or older and lives alone: No Alcohol intake: current Alcohol intake frequency: a few times a month Patient Tobacco Use Status: Never used Tobacco e-Cigarette/Vaping Use: Never Used Second Hand Smoke Exposure: No Agree to transfusion: Yes service: No Current occupational status: employed and unemployed 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 Current occupational exposures/hazards: No Cognitive needs: No Hearing needs: No Vision needs: No Female Reproductive History Menstrual Age of Menarche: 10 Questionnaire Thrive Questionnaire Date Thrive assessed: 11/03/24 I am a: Patient What is your living situation today?: I have a steady place to live Within the past 12 months, did the food you bought not last and you didn't have the money to get more?: Never true Within the past 12 months, did you worry whether your food would run out before you got money to buy more?: Never true Do you have trouble paying for medicines?: No Do you have trouble getting transportation to medical appointments?: No Do you have trouble paying your heating and electricity bill?: No Do you have trouble taking care of your child, family member or friend?: No Do you have trouble with day-to-day activities such as bathing, preparing meals, shopping, managing finances, etc.?: No Are you currently unemployed and looking for a job?: No Are you interested in more education?: No Please select the resources that you would like help with: None Currently or been in a relationship where the following occur: No concerns reported THRIVE Score: 0 RITIKA-7 AMB Questionnaire RITIKA-7 Date RITIKA - 7 assessed: 11/03/24 Source: Developed by Drs. Roberto Nicole, Nilda Ng, Pk Latif and colleagues, with an educational tonya from [employer]). Physical exam (Primary Care) Tobacco/Smoking Status: Tobacco use Status Tobacco use date assessed 11/03/24 11/10/24 16:03 Patient Tobacco Use Status Never used Tobacco 11/10/24 16:03 e-Cigarette/Vaping Use Never Used 11/10/24 16:03 Thrive Assessment: Date of Thrive Assessment Date Thrive assessed 11/03/24 11/10/24 16:03 Currently or been in a relationship where the following occur: No concerns reported Telehealth Telehealth Telehealth Platform: [facility] Location of provider rendering services: practice address Location of patient: address on file Patient Identification confirmed using: Name, : Yes Telehealth method: voice only Patient verbally consented to treatment: Yes Patient verbally consented to billing insurance company: Yes Patient informed of any privacy concerns related to visit: Yes Minutes spent on Phone/Video with Pt.: 15 Coding Level of Care Code Tele Est Pt Level 3 (92247) Complex EM visit Add On G2211 Diagnoses BMI 36.0-36.9,adult Z68.36 Class 2 obesity due to excess calories without serious comorbidity with body mass index (BMI) of 36.0 to 36.9 in adult E66.812; E66.09; Z68.36 Obesity type: due to excess calories Serious obesity comorbidity presence: without serious comorbidity Dietary counseling Z71.3 Assessment & Plan Assessment & Plan (1) BMI 36.0-36.9,adult: Code(s): Z68.36 - Body mass index [BMI] 36.0-36.9, adult Category: Medical (2) Class 2 obesity with body mass index (BMI) of 36.0 to 36.9 in adult: Code(s): E66.812 - Obesity, class 2; Z68.36 - Body mass index [BMI] 36.0-36.9, adult Category: Medical Qualifiers: Obesity type: due to excess calories Serious obesity comorbidity presence: without serious comorbidity Qualified Code(s): E66.812 - Obesity, class 2; E66.09 - Other obesity due to excess calories; Z68.36 - Body mass index [BMI] 36.0-36.9, adult (3) Dietary counseling: Code(s): Z71.3 - Dietary counseling and surveillance Category: Medical Plan .
== END ==
LOC: HO.HMCFM 15:29
PROVIDERS: PCP Nurse Practitioner Family; Visit Provider Nurse Practitioner Family
DX: E66.812 Obesity, class 2 (principal); Z68.36 Body mass index [BMI] 36.0-36.9, adult; Z71.3 Dietary counseling and surveillance

== ENCOUNTER 2024-11-19 13:42 | Outpatient (AMB) | payer OTHER, SELFPAY ==
--- NOTE | 2024-11-19 13:42 | A.OFFVIS_ITS ---
Intake Visit Reasons: suspicious mole x2, Lt ankle, Rt arm above elbow Intake Note: This patient presents for x2 suspicious skin lesion, left ankle and right arm above elbow. Pt c/o; itchiness, will like excision. 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 She describes this skin lesion on the right upper arm for about a year now. This has not increased in size but she says that at some point this seemed to have changed in color. She therefore wants this removed. She also had another skin lesion on the left ankle area and she wants this excised as well. Her half sister had melanoma so she is worried about any suspicious lesion. [facility] Medical History (Updated 11/19/24 @ 13:47 by Cayetano Celis MD) Skin lesions Goiter Abnormal glucose complicating Hypothyroidism affecting Surgical History Hx of section Hx of section Family History Paternal Grandmother Breast CA Father Type 2 diabetes mellitus H/O: stroke Myocardial infarction HTN (hypertension) Mother No problems noted. Paternal Grandfather Lung cancer Maternal Grandmother Type 2 diabetes mellitus Sister Type 1 diabetes mellitus Social History Household Members: Spouse and Children Both parents involved: Yes Caregiver staying overnight: No Housing: Apartment Are you a primary child care assistant to a significant other at home: No Do you presently have visiting nurse or other home services: No 75 years or older and lives alone: No Alcohol intake: current Alcohol intake frequency: a few times a month Patient Tobacco Use Status: Never used Tobacco e-Cigarette/Vaping Use: Never Used Second Hand Smoke Exposure: No Agree to transfusion: Yes service: No Current occupational status: employed and unemployed 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 Current occupational exposures/hazards: No Cognitive needs: No Hearing needs: No Vision needs: No Female Reproductive History Menstrual Age of Menarche: 10 Review of Systems Const Denies chills and Denies fever(s) Physical Exam Const General: comfortable and no acute distress Resp Effort & Inspection: normal respiratory effort Extrem Other: Right upper arm with note of a flat, erythematous, well-defined skin lesion, about 7 mm in diameter, does not appear pigmented Left ankle with note of a flat, erythematous skin lesion also about 7 mm in diameter, well-defined, does not appear pigmented Office Procedures Excision Details: She was in supine position. The area of the lesion on the right upper arm was prepped and draped. This was about a 7 mm skin lesion as described above. This area was infiltrated with lidocaine 1%. I made an elliptical incision on the skin surrounding this lesion with a blade 15. This his was carried down through the full-thickness of the skin to excise this entire lesion. This was sent as specimen. I closed the incision with full-thickness nylon 3-0 simple interrupted sutures. Dressings were applied. A 2nd lesion was excised in the same manner from the left ankle. This was about a 7 mm skin lesion as well. Closure was achieved also with full-thickness nylon 3-0 simple interrupted sutures Dressings were applied. [id number]/arms/legs 1.1-2cm (This was the aggregate diameter of the 2 lesions) Additional procedure code (CPT) needed (A 2nd lesion, also about 7 mm in size was removed.) Assessment & Plan Assessment & Plan (1) Skin lesions: Code(s): L98.9 - Disorder of the skin and subcutaneous tissue, unspecified Category: Medical Plan: She has 2 skin lesions as described above. Excision was done in the office under local anesthesia. She had given consent. She tolerated procedure well. There were no immediate complications. She was given wound care instructions. I will see her in the office for follow-up for removal sutures Coding Level of Care Code Procedure Only Diagnoses Skin lesions L98.9 CPT Codes Trunk/Arms/Legs - CPT: 43909-tjdyx/arms/legs 1.1-2cm ([id number])
== END 2024-11-19 13:54 | disposition home or self-care (01) ==
LOC: HO.HGS 13:42
PROVIDERS: PCP Nurse Practitioner Family; Visit Provider Surgery
DX: D22.61 Melanocytic nevi of right upper limb, including shoulder (principal); D22.72 Melanocytic nevi of left lower limb, including hip
CPT/HCPCS: 11402

== ENCOUNTER 2024-11-19 13:42 | Outpatient (REF) | payer OTHER, SELFPAY | END 2024-11-19 13:43 | disposition home or self-care (01) | LOC: HO.LNP 13:42 | PROVIDERS: PCP Nurse Practitioner Family; Visit Provider Surgery | DX: L98.9 Disorder of the skin and subcutaneous tissue, unspecified (principal); D22.72 Melanocytic nevi of left lower limb, including hip | CPT/HCPCS: 11401; 11402; 88304; 88305; 88341; 88342; 88360 ==